=== PATIENT | female | born 1995 | race Caucasian/White ===

== ENCOUNTER 2019-05-17 21:58 | Emergency (ER) | payer OTHER ==
[~2019-05-17] VITALS: Ht 172.7 cm; Wt 68.0 kg
[2019-05-17 22:04] VITALS: BP 134/79
[2019-05-17] MEDS ORDERED: NEOSPORIN OINT. PKT 1 PACKET ONE (22:10)
[2019-05-17] MEDS ORDERED: MUPIROCIN OINT 2%, 1 GM APPL. TP ONE (22:13)
[2019-05-17] MEDS ORDERED: PLEASE ENTER ALLERGIES MC SCH (22:30)
== END 2019-05-17 22:30 | disposition home or self-care (01) ==
LOC: ED 22:16
DX: S81.812A Laceration without foreign body, left lower leg, initial encounter (principal); L03.116 Cellulitis of left lower limb; X58.XXXA Exposure to other specified factors, initial encounter; Y93.89 Activity, other specified; Y92.89 Other specified places as the place of occurrence of the external cause; Y99.8 Other external cause status
CPT/HCPCS: 99283